=== PATIENT | female | born 1995 | race African-American/Black ===

== ENCOUNTER 2018-03-16 01:47 | Emergency (ER) | payer OTHER ==
[~2018-03-16] VITALS: Ht 165.1 cm; Wt 79.4 kg
[~2018-03-16 01:47] MED LIST: IBUPROFEN 800800 M1 PO; MACROBID 100 M100 M1 PO; PERCOCET 5-3251 EACH
[2018-03-16 01:52] VITALS: BP 139/83
[2018-03-16] MEDS ORDERED: AMOXICILLIN500 M1 PO (01:57)
== END 2018-03-16 02:07 | disposition home or self-care (01) ==
LOC: ER 01:47
DX: J02.0 Streptococcal pharyngitis (principal)

== ENCOUNTER 2020-02-17 18:23 | Emergency (ER) | payer OTHER ==
[~2020-02-17] VITALS: Ht 165.1 cm; Wt 77.1 kg
[~2020-02-17 18:23] MED LIST changes: +AMOXICILLIN500 M1 PO
[2020-02-17 18:26] VITALS: BP 127/87
[2020-02-17] MEDS ORDERED: IBUPROFEN 600600 M1 PO (19:05)
== END 2020-02-17 19:20 | disposition home or self-care (01) ==
LOC: ER 18:23
DX: S90.111A Contusion of right great toe without damage to nail, initial encounter (principal); M79.674 Pain in right toe(s); Z98.890 Other specified postprocedural states; Z79.2 Long term (current) use of antibiotics; Z79.899 Other long term (current) drug therapy; W22.8XXA Striking against or struck by other objects, initial encounter; Y93.89 Activity, other specified; Y92.89 Other specified places as the place of occurrence of the external cause; Y99.8 Other external cause status